=== PATIENT | male | born 1955 | race Caucasian/White ===

== ENCOUNTER 2022-04-14 05:52 | Inpatient (IN) ==
[2022-04-14] MEDS ORDERED: Buffered Lidocaine 1% SYRIN 1 ml INTRADERM ONE (06:00)
[2022-04-14] MEDS ORDERED: Lactated Ringers 1000 ml BAG 1,000 ML IV SCH (06:00)
[2022-04-14] MEDS ORDERED: ceFAZolin 2 GM in NS PREMIX 2 GM/100 ML BAG IVPB ONE (06:16)
[2022-04-14] MEDS ORDERED: ROPIVACAINE 5 MG/ML 30 ML BTL (0.5%) ONE ×2 (06:37→07:16)
[2022-04-14] MEDS ORDERED: Midazolam 2 mg/2 ml VIAL 1 mg/ml 2 ml VIAL (2 mg) ONE (07:06)
[2022-04-14] MEDS ORDERED: fentaNYL 250 mcg/5 ml 50 MCG/ML 5 ml VIAL (250 MCG) ONE (07:06)
[2022-04-14] MEDS ORDERED: Ondansetron 4 mg VIAL 2 MG/ML 2 ml VIAL ONE (07:06)
[2022-04-14] MEDS ORDERED: Propofol 10 MG/ML 20 ML BTL ONE ×2 (07:06→08:06)
[2022-04-14] MEDS ORDERED: Dexamethasone IV 4 MG/ML VIAL 1 ml VIAL ONE (07:06)
[2022-04-14] MEDS ORDERED: Lidocaine 2% PF 5 ML VIAL ONE (07:06)
[2022-04-14] MEDS ORDERED: Acetaminophen IV 1 GM/100ML 1,000 MG/100 ML BAG IV ONE (07:53)
[2022-04-14] MEDS ORDERED: HYDROmorphone 0.5 MG/0.5 ML SYRINGE ONE ×2 (08:03→08:17)
[2022-04-14] MEDS ORDERED: Naloxone 0.4 mg VIAL 0.4 mg/ml 1 ml VIAL IV PRN (08:10)
[2022-04-14] MEDS ORDERED: Ondansetron 4 mg VIAL 2 MG/ML 2 ml VIAL IV PRN ×2 (08:10→10:08)
[2022-04-14] MEDS ORDERED: Acetaminophen IV 1 GM/100ML 1,000 MG/100 ML BAG IV PRN (08:10)
[2022-04-14] MEDS ORDERED: HYDROmorphone 1 MG/1 ML SYRINGE IV PRN (08:10)
[2022-04-14] MEDS ORDERED: fentaNYL 100 mcg/2 ml 50 MCG/ML VIAL IV PRN (08:10)
[2022-04-14] MEDS ORDERED: Remifentanil 2 MG VIAL ONE (08:19)
[2022-04-14] MEDS ORDERED: Rocuronium 50 mg VIAL 10 mg/ml 5 ml VIAL (50 mg) ONE (08:23)
[2022-04-14] MEDS ORDERED: Morphine 2 MG/ML SYRINGE IV PRN (10:08)
[2022-04-14] MEDS ORDERED: Magnesium Hydroxide LIQ 30 ML UDC PO PRN (10:08)
[2022-04-14] MEDS ORDERED: Ondansetron ODT 4 mg TAB 4 MG TAB PO PRN (10:08)
[2022-04-14] MEDS ORDERED: Lactulose 30 ml UDC PO PRN (10:08)
[2022-04-14] MEDS ORDERED: fentaNYL 100 mcg/2 ml 50 MCG/ML VIAL ONE (10:32)
[2022-04-14] MEDS ORDERED: Labetalol IV 5 MG/ML 20 ml VIAL IV PUSH ONE (10:45)
[2022-04-14] MEDS ORDERED: Labetalol IV 5 MG/ML 20 ml VIAL ONE (10:47)
[2022-04-14] MEDS: ceFAZolin 1 GM ADVAN 1 GM in NS 0.9% 50 ML 50 ML IVPB SCH ×2 (16:48→23:37)
[2022-04-14] MEDS: Lactated Ringers 1000 ml BAG 1,000 ML IV SCH ×2 (19:00→22:45)
[2022-04-14] MEDS: Magnesium Hydroxide LIQ 30 ML UDC PO SCH (20:53)
[2022-04-14] MEDS ORDERED: Irbesartan 150 mg TAB (NF) PO SCH (21:00)
[2022-04-15 06:03] LABS: Hematocrit 36 % (42-52); Hemoglobin 12.1 g/dL (14.0-18.0); Mean Platelet Volume 8.6 fL (7.4-10.4); Platelet Count 180 10^3/uL (150-450)
[2022-04-15 06:25] LABS: Calcium 8.3 mg/dL (8.6-10.3); Creatinine, Serum 0.72 mg/dL (0.67-1.17)
[2022-04-15] MEDS: ceFAZolin 1 GM ADVAN 1 GM in NS 0.9% 50 ML 50 ML IVPB SCH (07:31)
[2022-04-15] MEDS: Magnesium Hydroxide LIQ 30 ML UDC PO SCH (07:53)
[2022-04-15] MEDS ORDERED: Vitamin THERAPEUTIC TAB PO SCH (09:00)
[2022-04-15 11:30] VITALS: BP 144/81
[2022-04-15] MEDS ORDERED: Irbesartan 150 mg TAB (NF) PO SCH (21:00)
== END 2022-04-15 15:41 | disposition home or self-care (01) | DRG 302 ==
LOC: AA 05:52 → SSU 11:54
PROVIDERS: ADMIT Orthopaedic Surgery Adult Reconstructive Orthopaedic Surgery; ATTEND Orthopaedic Surgery Adult Reconstructive Orthopaedic Surgery